=== PATIENT | female | born 1985 | race Caucasian/White ===

== ENCOUNTER 2017-06-04 10:00 | Observation (INO) | payer OTHER ==
[2017-06-04] MEDS ORDERED: Acetaminophen 325 MG Tab PO PRN (14:40)
--- NOTE | 2017-06-04 14:57 | PCM.LDHP ---
L&D History of Present Illness - General Date of Service: 06/04/17 Admit Problem/Dx: Admission Diagnosis/Problem Admission Diagnosis/Problem 06/04/17 14:51 32 yo G1 at 34 weeks 3 days gestation with dates based on LMP presented to the clinic with RLQ pain and possible increased vaginal discharge of clear fluid. she is currently on Keflex for UTI, course to be completed on Wednesday AM. Clinical exam included Sterile speculum exam: blood at cervix, no blood from the os. Cervical exam: 2.5cm/ 50%effaced/ NST: no contractions, reassuring FHR Amnisure: positive with blood stainging which can produce false positive results. Ferning: negative. Source of Information: Patient - Related Data Allergies/Adverse Reactions: Allergies Allergy/AdvReac Type Severity Reaction Status Date / Time No Known Allergies Allergy Verified 06/04/17 14:47 Home Medications: Home Meds Sertraline [Zoloft] 100 mg PO DAILY 04/11/16 [History] medroxyPROGESTERone [Provera] 10 mg PO DAILY #10 tab 04/11/16 [Rx] Past Medical History Gastrointestinal History: Reports: Irritable Bowel Syndrome - Past Surgical History GI Surgical History: Reports: Colonoscopy, Polypectomy Social & Family History - Tobacco Use Smoking Status *Q: Never Smoker - Recreational Drug Use Recreational Drug Use: No - Living Situation & Occupation Living situation: Reports: Occupation: Employed H&P Review of Systems - Review of Systems: Review Of Systems: See Below General: Reports: No Symptoms Pulmonary: Reports: No Symptoms Cardiovascular: Reports: No Symptoms Gastrointestinal: Reports: No Symptoms Genitourinary: Reports: No Symptoms L&D Exam - Exam Exam: See Below - Vital Signs Weight: 71.033 kg - Avila Score Avila Score Cervix Position: Midposition Avila Score Consistency: Soft Avila Score Effacement: 31-50% Avila Score Dilation: 1-2 cm - Exam GI/Abdominal Exam: Soft, No Distention, Other (tender to palpation in RLQ, no guarding or rebound. negative psoas sign) - Patient Data Lab Results Last 24 hrs: Laboratory Results - last 24 hr 06/04/17 Range/Units 10:00 Membrane Rupture Positive H - Problem List (1) Vaginal discharge during in third trimester SNOMED Code(s): 700243737 ICD Code: O26.893 - OTH RELATED CONDITIONS, THIRD TRIMESTER; N89.8 - OTHER SPECIFIED NONINFLAMMATORY DISORDERS OF VAGINA Status: Acute Current Visit: Yes Problem List Initiated/Reviewed/Updated: Yes Orders Last 24hrs: Active Orders 24 hr Category Date Time Status Non Stress Test [RC] PER UNIT ROUTINE Care 06/04/17 14:40 Ordered Up ad Edie [RC] ASDIRECTED Care 06/04/17 14:40 Ordered Vital Signs [RC] PER UNIT ROUTINE Care 06/04/17 14:40 Ordered Regular Diet [DIET] Diet 06/04/17 Dinner Ordered OB Ltd 1 or More Fetus [US] Routine Exams 06/04/17 14:48 Ordered Acetaminophen [Tylenol] Med 06/04/17 14:40 Ordered 650 mg PO Q4H PRN Medication Orders Acetaminophen (Tylenol) 650 mg PO Q4H PRN PRN Reason: Pain (mild 1-3) Assessment/Plan Comment:: Concern for PPROM in 34 week 3 day primip. plan to observe for 24 hours, obtain ARCHANA, repeat amnisure tomorrow. NST every 4 hours. Notify MD if contractions. Pt understand she will need to be transferred to [place] if active labor commences or AROM is present.
[2017-06-04 15:05] VITALS: BP 115/81
--- NOTE | 2017-06-04 16:00 | US ---
Limited obstetrical ultrasound: Multiple real-time images were obtained transabdominally. Comparison: No previous study. Dates: LMP: LMP given as 10/06/16, MARLINE 07/13/17, gestational age 34 weeks 3 days Current ultrasound: MARLINE 07/02/17, gestational age 36 weeks 0 days presentation: Cephalic Placenta: Anterior with no findings of placenta previa Amniotic fluid: ARCHANA 21.16 cm Measurements: BPD: 8.94 cm - 36 weeks 2 days Head circumference: 32.09 cm - 36 weeks 2 days Abdominal circumference: 32.10 cm - 36 weeks 1 day Femur length: 6.86 cm - 35 weeks 2 days Estimated weight: 2784 g (6 lbs. 2 oz.), estimated weight at the 47th percentile for current ultrasound Heart rate: 140 BPM Cervical length: Cervix not visualized due to position. Impression: 1. Single intrauterine fetus currently cephalic in presentation. Dates as noted above. 2. ARCHANA of 21.16 cm Diagnostic code #1
--- NOTE | 2017-06-05 12:06 | PCM.SN ---
- Free Text/Narrative Note: Antepartum Progress Note HD # 2 Subjective: Doing well overall. She reports that she has not had any additional leaking of fluid overnight. She reports that she is feeling some of the contractions but that they are not extremely painful. She reports she has been going to the bathroom without difficulty. Tolerating regular diet. Denies any fevers or chills. Denies any nausea or vomiting. Denies any significant abdominal pain or reports that she has had continued right lower quadrant pain that has been present for the last 5 days. Objective: Vitals: Last Vital Signs Temp 37.1 C 06/04/17 14:40 Pulse 83 06/04/17 14:40 Resp 16 06/04/17 14:40 BP 115/81 06/04/17 14:40 Pulse Ox 97 06/04/17 14:40 Physical Exam General: Alert and oriented, no acute distress Lungs: Clear to auscultation bilaterally Heart: Regular rate and rhythm Abdomen: Soft, gravid, nondistended, mild right lower quadrant tenderness, no fundal tenderness Pelvic: Friable-appearing cervix with no fluid in the vaginal vault, small amount of bleeding from the cervix with placement and opening of the speculum, unable to perform Amnisure secondary to significant amount of bleeding present, cervical exam 2.5/40%/-3/medium/posterior, able to feel amniotic sac that was felt to be intact with head behind amniotic sac Extremities: No edema Obstetrical ultrasound from 06/04/2017 at 1501 Single intrauterine fetus in cephalic presentation ARCHANA of 21.16 cm ASSESSMENT: 32-year-old female G 1 P 0 at 34 weeks 4 days who was admitted for continued observation in the setting of possible premature rupture of membranes based on positive Amnisure in the office with negative ferning PLAN: Doing well Discussed with patient that based on the exam with the speculum that there was no fluid within the vagina and she was not having any leaking overnight but she had bleeding with the speculum exam that I was not able to perform the Amnisure exam. This would have been more definitive testing for possible rupture of membranes. Discussed with patient that because I was able to feel the bag of water with a decent amount of fluid and a normal ARCHANA on the ultrasound that she is unlikely to have premature rupture of membranes. Cervical exam was unchanged from yesterday despite regular contractions overnight. Discussed with patient that this is likely not premature rupture membranes and that she is not in labor with unchanged cervical exam. Discussed with patient that she should have close follow-up with her regular OB provider, recommend for her follow-up on Wednesday, at 06/07/2017. Patient given strict return precautions including large gush of fluid, continued leaking of fluid, severe abdominal pain, regular contractions that are approximately every 10 minutes apart, severe nausea or vomiting, decreased movement, bleeding enough to soak a pad in less than an hour. Patient states understanding Casey Coombs MD 12:11 PM 06/05/2017
--- NOTE | 2017-06-05 12:16 | PCM.DCSUM1 ---
Discharge Summary - Hospital Course Free Text/Narrative:: 32 yo G1 at 34 weeks 3 days gestation with dates based on LMP presented to the clinic with RLQ pain and possible increased vaginal discharge of clear fluid. she is currently on Keflex for UTI, course to be completed on Wednesday. Clinical exam included Sterile speculum exam: blood at cervix, no blood from the os. Cervical exam: 2.5cm/ 50%effaced/ NST: no contractions, reassuring FHR Amnisure: positive with blood stainging which can produce false positive results. Ferning: negative. HPI Initial Comments: 32 yo G1 at 34 weeks 3 days gestation with dates based on LMP presented to the clinic with RLQ pain and possible increased vaginal discharge of clear fluid. she is currently on Keflex for UTI, course to be completed on Wednesday. Clinical exam included Sterile speculum exam: blood at cervix, no blood from the os. Cervical exam: 2.5cm/ 50%effaced/ NST: no contractions, reassuring FHR Amnisure: positive with blood stainging which can produce false positive results. Ferning: negative. Brief History: 32 yo G1 at 34 weeks 3 days gestation with dates based on LMP presented to the clinic with RLQ pain and possible increased vaginal discharge of clear fluid. she is currently on Keflex for UTI, course to be completed on Wednesday. Clinical exam included. Sterile speculum exam: blood at cervix, no blood from the os. Cervical exam: 2.5cm/ 50%effaced/. NST: no contractions, reassuring FHR. Amnisure: positive with blood stainging which can produce false positive results. Ferning: negative. - Discharge Data Discharge Date: 06/05/17 Discharge Disposition: Home, Self-Care 01 Condition: Good - Discharge Diagnosis/Problem(s) (1) 34 weeks gestation of SNOMED Code(s): 32111369 ICD Code: Z3A.34 - 34 WEEKS GESTATION OF Status: Acute Current Visit: Yes (2) UTI (urinary tract infection) in in third trimester SNOMED Code(s): 759629990 ICD Code: O23.43 - UNSP INFCT OF URINARY TRACT IN , THIRD TRIMESTER Status: Acute Current Visit: Yes (3) Vaginal discharge during in third trimester SNOMED Code(s): 030362041 ICD Code: O26.893 - OTH RELATED CONDITIONS, THIRD TRIMESTER; N89.8 - OTHER SPECIFIED NONINFLAMMATORY DISORDERS OF VAGINA Status: Acute Current Visit: Yes - Patient Summary/Data Operative Procedure(s) Performed: None Complications: None Consults: None Hospital Course: 32 yo G1 at 34 weeks 3 days gestation with dates based on LMP presented to the clinic with RLQ pain and possible increased vaginal discharge of clear fluid. she is currently on Keflex for UTI, course to be completed on Wednesday AM. Clinical exam included Sterile speculum exam: blood at cervix, no blood from the os. Cervical exam: 2.5cm/ 50%effaced/ NST: no contractions, reassuring FHR Amnisure: positive with blood stainging which can produce false positive results. Ferning: negative. Patient was monitored overnight after she was admitted for possible premature rupture membranes. There was concern for PPROM based on positive Amnisure but this was done with a significant amount of blood present that can sometimes cause a false positive. She had ferning test done that was negative. She had an ultrasound done on day of admission that showed an ARCHANA of 21.16 cm. Her monitoring was reactive throughout the night but she was having some uterine irritability with irregular contractions that were every 6-10 minutes apart. Patient reports that they were very mild in nature. In the morning of hospital day #2 and additional speculum pelvic exam was performed but due to the cervix that had significant amount of friability there was some bleeding when the speculum was opened and then Amnisure was not able to be performed. Prior to cervical bleeding there was noted to be no significant fluid within the vaginal vault. Patient reports that she was not having any continued leaking of fluid throughout the night. She reports that baby was moving well throughout the night. Cervical exam was 2.5/40/-3/medium/posterior which is felt to be unchanged from previous providers exam. Discussed with patient that with all of these tests that were done that was unlikely the patient had PPROM and offered discharge at this time. Patient desired to be discharged home. She was given strict return precautions for concern for rupture membranes, labor or chorioamnionitis. Patient states understanding. She will follow up with Dr. Madrigal on 06/07/2017. - Patient Instructions Diet: Regular Diet as Tolerated Activity: As Tolerated Activity, Other: Pelvic rest Driving: May Drive Today Showering/Bathing: May Shower Notify Provider of: Fever, Increased Pain, Drainage, Nausea and/or Vomiting - Discharge Plan Home Medications: Home Meds Sertraline [Zoloft] 100 mg PO DAILY 04/11/16 [History] Cephalexin [Keflex] 06/04/17 [History] Vits #93/Iron Fum/FA [ Formula Tablet] 06/04/17 [History] Patient Handouts: Labor Information, [id number], Pelvic Rest Referrals: Pooja Baca MD [Physician] - 06/07/17 (follow-up with Dr. Madrigal on 06/07/2017) - Discharge Summary/Plan Comment DC Time >30 min.: No - Patient Data Vitals - Most Recent: Last Vital Signs Temp 37.1 C 06/04/17 14:40 Pulse 83 06/04/17 14:40 Resp 16 06/04/17 14:40 BP 115/81 06/04/17 14:40 Pulse Ox 97 06/04/17 14:40 Weight - Most Recent: 71.033 kg I&O - Last 24 hours: Intake & Output 06/04/17 06/05/17 06/05/17 22:59 06:59 14:59 Intake Total 0 Balance 0 Med Orders - Current: Current Medications Acetaminophen (Tylenol) 650 mg PO Q4H PRN PRN Reason: Pain (mild 1-3) *Q Meaningful Use (DIS) - VTE *Q VTE Criteria *Q: - Stroke *Q Stroke Criteria *Q: - AMI *Q AMI Criteria *Q:
--- NOTE | 2017-06-05 14:57 | PCM.SN ---
- Free Text/Narrative Note: NST Procedure note Patient Name: Elizabeth Cooney Date Performed: 06/05/2017 Time Performed: [id number] Location performed: Evaluation room NST Indication: Elizabeth Cooney is a 32 year old at 34w4d who had an NST in the setting of possible PPROM. Vital Signs: Last Vital Signs Temp 37.1 C 06/04/17 14:40 Pulse 83 06/04/17 14:40 Resp 16 06/04/17 14:40 BP 115/81 06/04/17 14:40 Pulse Ox 97 06/04/17 14:40 Heart Tones: 130s, moderate variability, positive accelerations, occasional variable decelerations Tocometer: Irregular contractions every 6-10 minutes Assessment: Reactive NST Follow up: With your regular provider on 06/07/17 Casey Coombs MD
== END 2017-06-05 11:00 | disposition home or self-care (01) ==
LOC: JD.NPSAN 10:00 → JD.OB 14:36
PROVIDERS: ADMIT Family Medicine; ATTEND Family Medicine
DX: O26.893 Other specified pregnancy related conditions, third trimester (principal); N89.8 Other specified noninflammatory disorders of vagina; O23.43 Unspecified infection of urinary tract in pregnancy, third trimester; Z3A.34 34 weeks gestation of pregnancy; Z79.2 Long term (current) use of antibiotics; Z98.890 Other specified postprocedural states
CPT/HCPCS: 59025; 76815; 84112; G0378

== ENCOUNTER 2019-10-19 07:55 | Inpatient (IN) | payer OTHER ==
[~2019-10-19 07:55] MED LIST: Bupivacaine 0.25% 10 ML SDV ONE
[2019-10-19] MEDS ORDERED: Sodium Chloride 0.9% 10 ML Syringe FLUSH PRN (09:57)
[2019-10-19] MEDS ORDERED: Ondansetron 4 MG/2 ML SDV IVPUSH PRN (09:57)
[2019-10-19] MEDS ORDERED: Oxytocin/Lactated Ringers 10 UNIT/1,000 ML BAG IV SCH (10:00)
[2019-10-19] MEDS ORDERED: Ampicillin 2 GM in Sodium Chloride 0.9% 100 ML IV ONE (10:00)
[2019-10-19] MEDS: Lactated Ringers 1,000 ML IV SCH ×2 (10:10→16:37)
[2019-10-19] MEDS ORDERED: diphenhydrAMINE 50 MG/ML SDV IVPUSH PRN (10:42)
[2019-10-19] MEDS ORDERED: ePHEDrine 50 MG/ML SDV IVPUSH PRN (10:42)
[2019-10-19] MEDS ORDERED: fentaNYL 100 MCG/2 ML SDV EPIDUR PRN (10:42)
[2019-10-19] MEDS ORDERED: Bupivacaine/fentaNYL/NS 100 ML Bag EPIDUR PRN (10:42)
--- NOTE | 2019-10-19 13:07 | PCM.LDHP ---
<Marguerite Albright L - Last Filed: 10/19/19 12:59> L&D History of Present Illness - General Date of Service: 10/19/19 Admit Problem/Dx: Patient Status Order with Admit Dx/Problem 10/19/19 09:57 Patient Status [ADT] Routine Admission Diagnosis/Problem Admission Diagnosis/Problem 10/19/19 13:02 34-year-old white female [id number] presented to clinic this morning for a routine OB visit and noted some clear thin vaginal fluid, as well as contractions every 5-7 minutes for an hour or two at a time. Amnisure was positive. Patient was instructed to head to labor and delivery due to symptoms, lab analysis, and GBS positive status to ensure that antibiotic administration would be adequate before delivery. Mother is currently comfortable and antibiotic is being administered. Source of Information: Patient History Limitations: Reports: No Limitations - History of Present Illness Introduction:: 34-year-old white female [id number] presented to clinic this morning for a routine OB visit and noted some clear thin vaginal fluid, as well as contractions every 5-7 minutes for an hour or two at a time. Amnisure was positive. Patient was instructed to head to labor and delivery due to symptoms, lab analysis, and GBS positive status to ensure that antibiotic administration would be adequate before delivery. Mother is currently comfortable and antibiotic is being administered. Plan to rupture membranes after antibiotic delivery complete. Patient has on compression stockings as she is still able to ambulate to prevent DVTs. Will switch to SCDs when epidural is administered. She is not feeling any significant contractions but does note a pressure, abdominal tightening, and some low back pain. monitoring shows appropriate heart rate. Patient's blood pressure slightly elevated in L&D but not elevated during clinic visits. : Q8N1-5-2-3 with unremarkable course of . MARLINE 11/01/2019 by ultrasound dating, LMP estimated at 01/20/2020. Medications taken during include vitamins and Sertraline HCL 100 mg PO once daily. Symptoms during include: fatigue, nausea, dizziness (dehydration), and vaginal discharge. Early GTT performed due to history of gestational diabetes in prior . Started on progesterone injections at 20 weeks until 35 weeks due to history of prior labor. Influenza vaccination administered 05/31/19, Tdap administered 09/07/2019. Rubella immune. Planning to breastfeed. OB history: A4D6-9-9-2 with at 35 weeks gestation- female weighing 5 lb 5oz (Erna). Length of labor during first delivery was 2 hours. Gestational diabetes in first . Current is GBS positive. Laboratory: Blood type A+ with negative antibody screen. 04/12/19 hgb 14.4, hct 41.1%, platelets 207. Rubella immune and RPR/VDRL nonreactive. Negative for HIV , HBsAg, and STIs. UA contaminated. TSH 2.118 and Free T4 1.01 (04/12/19). Diabetic screen 128 (08/11/2019). GBS positive. Progesterone 26.12 (03/15/19). Declined genetic testing. Medications: Sertraline HCl 100 mg PO once daily, vitamins Allergies: No known drug allergies PMH: anxiety and depression, gestational diabetes in 1st , irritable bowel syndrome FH: Mother and PGF have hypertension. Father and sister have depression. PGF diabetes type II. SH: Rare alcohol use before . No tobacco use. Danial. 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 ROS: Positive for pelvic pressure/tightening and thin vaginal discharge. All other systems unremarkable. Physical: Cervical exam deferred until completion of antibiotics. Blood pressure mildly elevated. Quality: Reports: Pressure, Other (tightening ) Severity: Mild Associated Symptoms: Reports: vaginal fluid (thick mucus a week ago that transitioned to a thinner clear fluid), mild amount - Related Data Allergies/Adverse Reactions: Allergies Allergy/AdvReac Type Severity Reaction Status Date / Time No Known Allergies Allergy Verified 06/04/17 14:47 Home Medications: Home Meds Sertraline [Zoloft] 100 mg PO DAILY 04/11/16 [History] Vits #93/Iron Fum/FA [ Formula Tablet] 1 tab PO DAILY 06/04/17 [History] Past Medical History HEENT History: Reports: Other (See Below) Other HEENT History: glasses Gastrointestinal History: Reports: Irritable Bowel Syndrome 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: , Other (See Below) Other OB/BYN History: ovarian cyst Psychiatric History: Reports: Anxiety, Depression Endocrine/Metabolic History: Reports: Diabetes, Gestational - Past Surgical History HEENT Surgical History: Reports: Oral Surgery GI Surgical History: Reports: Colonoscopy, Polypectomy Social & Family History - Family History Family Medical History: Noncontributory Cardiac: Reports: Hypertension (Mother and PGF) Psychiatric: Reports: Depression (Father and sister) Endocrine/Metabolic: Reports: Diabetes, type II (PGF) - Tobacco Use Smoking Status *Q: Never Smoker Second Hand Smoke Exposure: No - Alcohol Use Alcohol Use History: Yes Date/Time of Last Drink Comment: Before Alcohol Use in Last Twelve Months: No Alcohol Use Frequency: Rarely - Recreational Drug Use Recreational Drug Use: No - Living Situation & Occupation Living situation: Reports: Occupation: Employed H&P Review of Systems - Review of Systems: Review Of Systems: See Below Free Text/Narrative: Comfortable with mild contractions General: Reports: No Symptoms HEENT: Reports: No Symptoms, Glasses Pulmonary: Reports: No Symptoms Cardiovascular: Reports: No Symptoms Gastrointestinal: Reports: No Symptoms Genitourinary: Reports: No Symptoms Musculoskeletal: Reports: No Symptoms Skin: Reports: No Symptoms Psychiatric: Reports: No Symptoms Neurological: Reports: No Symptoms Hematologic/Lymphatic: Reports: No Symptoms Immunologic: Reports: No Symptoms L&D Exam - Exam Exam: See Below - Vital Signs Vital Signs: Last Vital Signs Temp 97.5 F 10/19/19 09:57 Pulse 80 10/19/19 12:01 Resp 14 10/19/19 09:57 BP 140/86 10/19/19 12:01 Pulse Ox Weight: 75.296 kg - OB Specific Contraction Frequency (min): 5-7 Contraction Intensity: Mild Movement: Active Heart Tones: Present Presentation: Vertex - Avila Score Avila Score Cervix Position: Midposition (Obtained during visit today (10/19/2019)) Avila Score Consistency: Soft Avila Score Effacement: >80% Avila Score Dilation: 3-4 cm Avila Score 's Station: -3 Avila Score Total: 8 - Exam Quality Assessment: DVT Prophylaxis (currently compression stockings and ambulating but will place SCDs) General: Alert, Oriented HEENT: Conjunctiva Clear, EOMI, Hearing Intact, Mucosa Moist & Tappen, Pupils Equal Lungs: Normal Respiratory Effort Cardiovascular: Regular Rate, Regular Rhythm Genitourinary: Deferred (until after antibiotic administration, Avila score determined from today's visit just prior to L&D) Back Exam: Normal Inspection Extremities: Normal Inspection, Normal Range of Motion Skin: Warm, Dry, Intact Neurological: Normal Gait, Normal Speech, Sensation Intact Psychiatric: Alert, Normal Affect, Normal Mood - Patient Data Lab Results Last 24 hrs: Laboratory Results - last 24 hr 10/19/19 Range/Units 10:15 WBC 8.57 (3.98-10.04) K/mm3 RBC 4.10 (3.98-5.22) M/mm3 Hgb 13.1 (11.2-15.7) gm/dl Hct 39.5 (34.1-44.9) % MCV 96.3 H (79.4-94.8) fl MCH 32.0 (25.6-32.2) pg MCHC 33.2 (32.2-35.5) g/dl RDW Std Deviation 45.6 (36.4-46.3) fL Plt Count 167 L (182-369) K/mm3 MPV 12.3 (9.4-12.3) fl Neut % (Auto) 70.0 (34.0-71.1) % Lymph % (Auto) 21.6 (19.3-51.7) % [place] % (Auto) 7.6 (4.7-12.5) % Eos % (Auto) 0.4 L (0.7-5.8) Baso % (Auto) 0.2 (0.1-1.2) % Neut # (Auto) 6.00 (1.56-6.13) K/mm3 Lymph # (Auto) 1.85 (1.18-3.74) K/mm3 [place] # (Auto) 0.65 H (0.24-0.36) K/mm3 Eos # (Auto) 0.03 L (0.04-0.36) K/mm3 Baso # (Auto) 0.02 (0.01-0.08) K/mm3 Result Diagrams: 10/19/19 10:15 - Problem List (1) 38 weeks gestation of SNOMED Code(s): 00263736 ICD Code: Z3A.38 - 38 WEEKS GESTATION OF Status: Acute Current Visit: Yes Problem Details: Group B Strep positive status Problem List Initiated/Reviewed/Updated: Yes Orders Last 24hrs: Active Orders 24 hr Category Date Time Status Patient Status [ADT] Routine ADT 10/19/19 09:57 Active Activity as Tolerated [RC] PFP Care 10/19/19 09:57 Active Communication Order [RC] ASDIRECTED Care 10/19/19 09:57 Active Communication Order [RC] ASDIRECTED Care 10/19/19 10:42 Active Non Stress Test [RC] PER UNIT ROUTINE Care 10/19/19 09:57 Active Notify Provider [RC] ASDIRECTED Care 10/19/19 10:42 Active Notify Provider [RC] PFP Care 10/19/19 09:57 Active Notify Provider [RC] PRN Care 10/19/19 09:57 Active Peripheral IV Care [RC] . DIRECTED Care 10/19/19 09:58 Active Pulse Oximetry [RC] ASDIRECTED Care 10/19/19 10:42 Active Pump Management, Intrathecal [RC] ASDIRECTED Care 10/19/19 10:00 Active Urinary Catheter Assessment [RC] ASDIRECTED Care 10/19/19 09:57 Active Vital Signs [RC] PER UNIT ROUTINE Care 10/19/19 09:57 Active Vital Signs [RC] Q1H Care 10/19/19 10:42 Active Regular Diet [DIET] Diet 10/19/19 Breakfast Active RAPID PLASMA REAGIN,RPR [CHEM] Routine Lab 10/19/19 10:15 Received Ampicillin 1 gm Med 10/19/19 14:00 Active Sodium Chloride 0.9% [Normal Saline] 100 ml IV Q4H Bupivacaine/fentaNYL/NS [fentaNYL/Bupivacaine/NS 2 MCG- Med 10/19/19 10:42 Active 0.125% 100 ML] 100 ml EPIDUR CONTINUOUS PRN Lactated Ringers [Ringers, Lactated] 1,000 ml Med 10/19/19 10:00 Active IV ASDIRECTED Ondansetron [Zofran] Med 10/19/19 09:57 Active 4 mg IVPUSH Q4H PRN Oxytocin/Lactated Ringers [Pitocin in LR 10 Units/1,000 Med 10/19/19 10:00 Active ML] 10 unit in 1,000 ml IV .CONTINUOUS Sodium Chloride 0.9% [Saline Flush] Med 10/19/19 09:57 Active 10 ml FLUSH ASDIRECTED PRN diphenhydrAMINE [Benadryl] Med 10/19/19 10:42 Active 25 mg IVPUSH Q6H PRN ePHEDrine [ePHEDrine sulfate] Med 10/19/19 10:42 Active 5 mg IVPUSH ASDIRECTED PRN fentaNYL [Sublimaze] Med 10/19/19 10:42 Active 100 mcg EPIDUR Q3H PRN Electronic Heart Tones Ext w TOCO [WOMSER] Oth 10/19/19 09:57 Ordered Routine Electronic Heart Tones Internal [WOMSER] Per Unit Oth 10/19/19 09:57 Ordered Routine Peripheral IV Insertion Adult [OM.PC] Routine Oth 10/19/19 09:57 Ordered Resuscitation Status Routine Resus Stat 10/19/19 09:57 Ordered Medication Orders Diphenhydramine HCl (Benadryl) 25 mg IVPUSH Q6H PRN PRN Reason: Itching Ephedrine Sulfate (Ephedrine Sulfate) 5 mg IVPUSH ASDIRECTED PRN PRN Reason: HYPOTENTSION Fentanyl (Sublimaze) 100 mcg EPIDUR Q3H PRN PRN Reason: Pain Fentanyl/Bupivacaine HCl (Fentanyl/Bupivacaine/Ns 2 Mcg-0.125% 100 Ml) 100 ml EPIDUR CONTINUOUS PRN PRN Reason: Pain Ampicillin Sodium 1 gm/ Sodium (Chloride) 100 mls @ 200 mls/hr IV Q4H HEAVEN Lactated Ringer's (Ringers, Lactated) 1,000 mls @ 100 mls/hr IV ASDIRECTED [facility] Last Admin: 10/19/19 10:10 Dose: 100 mls/hr Oxytocin/Lactated Ringer's (Pitocin In Lr 10 Units/1,000 Ml) 10 unit in 1,000 mls @ 100 mls/hr IV .CONTINUOUS [facility] Ondansetron HCl (Zofran) 4 mg IVPUSH Q4H PRN PRN Reason: Nausea/Vomiting Sodium Chloride (Saline Flush) 10 ml FLUSH ASDIRECTED PRN PRN Reason: Keep Vein Open <Jeremias Carnes - Last Filed: 10/19/19 19:29> L&D History of Present Illness - General Admit Problem/Dx: Patient Status Order with Admit Dx/Problem 10/19/19 09:57 Patient Status [ADT] Routine Admission Diagnosis/Problem Admission Diagnosis/Problem L&D Exam - Vital Signs Vital Signs: Last Vital Signs Temp 36.4 C 10/19/19 09:57 Pulse 80 10/19/19 12:01 Resp 14 10/19/19 09:57 BP 140/86 10/19/19 12:01 Pulse Ox - Patient Data Lab Results Last 24 hrs: Laboratory Results - last 24 hr 10/19/19 Range/Units 10:15 WBC 8.57 (3.98-10.04) K/mm3 RBC 4.10 (3.98-5.22) M/mm3 Hgb 13.1 (11.2-15.7) gm/dl Hct 39.5 (34.1-44.9) % MCV 96.3 H (79.4-94.8) fl MCH 32.0 (25.6-32.2) pg MCHC 33.2 (32.2-35.5) g/dl RDW Std Deviation 45.6 (36.4-46.3) fL Plt Count 167 L (182-369) K/mm3 MPV 12.3 (9.4-12.3) fl Neut % (Auto) 70.0 (34.0-71.1) % Lymph % (Auto) 21.6 (19.3-51.7) % [place] % (Auto) 7.6 (4.7-12.5) % Eos % (Auto) 0.4 L (0.7-5.8) Baso % (Auto) 0.2 (0.1-1.2) % Neut # (Auto) 6.00 (1.56-6.13) K/mm3 Lymph # (Auto) 1.85 (1.18-3.74) K/mm3 [place] # (Auto) 0.65 H (0.24-0.36) K/mm3 Eos # (Auto) 0.03 L (0.04-0.36) K/mm3 Baso # (Auto) 0.02 (0.01-0.08) K/mm3 Result Diagrams: 10/19/19 10:15 Problem List Initiated/Reviewed/Updated: Yes Orders Last 24hrs: Active Orders 24 hr Category Date Time Status Patient Status Manage Transfer [TRANSFER] Routine ADT 10/19/19 19:14 Active Patient Status [ADT] Routine ADT 10/19/19 09:57 Active Activity as Tolerated [RC] PFP Care 10/19/19 09:57 Active Communication Order [RC] ASDIRECTED Care 10/19/19 09:57 Active Communication Order [RC] ASDIRECTED Care 10/19/19 10:42 Active Notify Provider [RC] ASDIRECTED Care 10/19/19 10:42 Active Notify Provider [RC] PFP Care 10/19/19 09:57 Active Notify Provider [RC] PRN Care 10/19/19 09:57 Active Peripheral IV Care [RC] . DIRECTED Care 10/19/19 09:58 Active Pump Management, Intrathecal [RC] ASDIRECTED Care 10/19/19 10:00 Active Urinary Catheter Assessment [RC] ASDIRECTED Care 10/19/19 09:57 Active Vital Signs [RC] PER UNIT ROUTINE Care 10/19/19 09:57 Active Regular Diet [DIET] Diet 10/19/19 Breakfast Active RAPID PLASMA REAGIN,RPR [CHEM] Routine Lab 10/19/19 10:15 Received Ampicillin 1 gm Med 10/19/19 14:00 Active Sodium Chloride 0.9% [Normal Saline] 100 ml IV Q4H Bupivacaine/fentaNYL/NS [fentaNYL/Bupivacaine/NS 2 MCG- Med 10/19/19 10:42 Active 0.125% 100 ML] 100 ml EPIDUR CONTINUOUS PRN Lactated Ringers [Ringers, Lactated] 1,000 ml Med 10/19/19 10:00 Active IV ASDIRECTED Ondansetron [Zofran] Med 10/19/19 09:57 Active 4 mg IVPUSH Q4H PRN Oxytocin/Lactated Ringers [Pitocin in LR 10 Units/1,000 Med 10/19/19 10:00 Active ML] 10 unit in 1,000 ml IV .CONTINUOUS Sertraline [Zoloft] Med 10/20/19 09:00 Active 100 mg PO DAILY Sodium Chloride 0.9% [Saline Flush] Med 10/19/19 09:57 Active 10 ml FLUSH ASDIRECTED PRN diphenhydrAMINE [Benadryl] Med 10/19/19 10:42 Active 25 mg IVPUSH Q6H PRN ePHEDrine [ePHEDrine sulfate] Med 10/19/19 10:42 Active 5 mg IVPUSH ASDIRECTED PRN fentaNYL [Sublimaze] Med 10/19/19 10:42 Active 100 mcg EPIDUR Q3H PRN Electronic Heart Tones Ext w TOCO [WOMSER] Oth 10/19/19 09:57 Ordered Routine Electronic Heart Tones Internal [WOMSER] Per Unit Oth 10/19/19 09:57 Ordered Routine Peripheral IV Insertion Adult [OM.PC] Routine Oth 10/19/19 09:57 Ordered Resuscitation Status Routine Resus Stat 10/19/19 09:57 Ordered Medication Orders Diphenhydramine HCl (Benadryl) 25 mg IVPUSH Q6H PRN PRN Reason: Itching Ephedrine Sulfate (Ephedrine Sulfate) 5 mg IVPUSH ASDIRECTED PRN PRN Reason: HYPOTENTSION Fentanyl (Sublimaze) 100 mcg EPIDUR Q3H PRN PRN Reason: Pain Last Admin: 10/19/19 16:29 Dose: 100 mcg Fentanyl/Bupivacaine HCl (Fentanyl/Bupivacaine/Ns 2 Mcg-0.125% 100 Ml) 100 ml EPIDUR CONTINUOUS PRN PRN Reason: Pain Last Admin: 10/19/19 16:30 Dose: 100 ml Ampicillin Sodium 1 gm/ Sodium (Chloride) 100 mls @ 200 mls/hr IV Q4H HEAVEN Last Admin: 10/19/19 17:58 Dose: 200 mls/hr Infusion: 10/19/19 14:32 Dose: 200 mls/hr Admin: 10/19/19 14:02 Dose: 200 mls/hr Lactated Ringer's (Ringers, Lactated) 1,000 mls @ 100 mls/hr IV ASDIRECTED [facility]EN Last Admin: 10/19/19 16:37 Dose: 100 mls/hr Infusion: 10/19/19 16:37 Dose: 100 mls/hr Admin: 10/19/19 10:10 Dose: 100 mls/hr Oxytocin/Lactated Ringer's (Pitocin In Lr 10 Units/1,000 Ml) 10 unit in 1,000 mls @ 100 mls/hr IV .CONTINUOUS [facility] Ondansetron HCl (Zofran) 4 mg IVPUSH Q4H PRN PRN Reason: Nausea/Vomiting Sertraline HCl (Zoloft) 100 mg PO DAILY [facility] Sodium Chloride (Saline Flush) 10 ml FLUSH ASDIRECTED PRN PRN Reason: Keep Vein Open Assessment/Plan Comment:: 1. 38-1/7 week intrauterine , spontaneous rupture membranes, early labor, advanced cervical dilation of 4 cm upon evaluation prior to admission. 2. Group B strep screen positivecandidate for antibiotic prophylaxis 3. Patient plans to breast-feed 4. Patient desires epidural in labor and delivery 5. Patient is rubella immune. Patient received both T dap and flu vaccinations. 6. Previous history of labor. 7. On sertraline presently been course. Plan: 1. We'll proceed with prophylaxis with ampicillin 2 g initially followed by 1 g IV every 4 hours per protocol for group B strep positive status. 2. Anticipate normal spontaneous vaginal delivery 3. Epidural when necessary per patient desire 4. CBC for platelet count and RPR upon admission per protocol. 5. Routine labor care 6. Continue sertraline after delivery
[2019-10-19] MEDS: Ampicillin 1 GM in Sodium Chloride 0.9% 100 ML IV SCH ×2 (14:02→17:58)
--- NOTE | 2019-10-19 16:52 | PCM.PREANE ---
Preanesthetic Assessment - Procedure Proposed Procedure: epidural - Anesthesia/Transfusion/Family Hx Anesthesia History: Prior Anesthesia Without Reaction Family History of Anesthesia Reaction: No Transfusion History: No Prior Transfusion(s) - Review of Systems General: Fatigue Pulmonary: No Symptoms Cardiovascular: No Symptoms Gastrointestinal: Abdominal Pain (labor) Neurological: No Symptoms Other: Reports: None - Physical Assessment Vital Signs: Last Vital Signs Temp 36.4 C 10/19/19 09:57 Pulse 80 10/19/19 12:01 Resp 14 10/19/19 09:57 BP 140/86 10/19/19 12:01 Pulse Ox Height: 1.68 m Weight: 75.296 kg ASA Class: 2 Mental Status: Alert & Oriented x3 Airway Class: Mallampati = 1 Dentition: Reports: Normal Dentition Thyro-Mental Finger Breadths: 3 Mouth Opening Finger Breadths: 3 ROM/Head Extension: Full Lungs: Clear to Auscultation, Normal Respiratory Effort Cardiovascular: Regular Rate, Regular Rhythm - Lab Values: Laboratory Last Values WBC 8.57 K/mm3 (3.98-10.04) 10/19/19 10:15 RBC 4.10 M/mm3 (3.98-5.22) 10/19/19 10:15 Hgb 13.1 gm/dl (11.2-15.7) 10/19/19 10:15 Hct 39.5 % (34.1-44.9) 10/19/19 10:15 MCV 96.3 fl (79.4-94.8) H 10/19/19 10:15 MCH 32.0 pg (25.6-32.2) 10/19/19 10:15 MCHC 33.2 g/dl (32.2-35.5) 10/19/19 10:15 RDW Std Deviation 45.6 fL (36.4-46.3) 10/19/19 10:15 Plt Count 167 K/mm3 (182-369) L 10/19/19 10:15 MPV 12.3 fl (9.4-12.3) 10/19/19 10:15 Neut % (Auto) 70.0 % (34.0-71.1) 10/19/19 10:15 Lymph % (Auto) 21.6 % (19.3-51.7) 10/19/19 10:15 [place] % (Auto) 7.6 % (4.7-12.5) 10/19/19 10:15 Eos % (Auto) 0.4 (0.7-5.8) L 10/19/19 10:15 Baso % (Auto) 0.2 % (0.1-1.2) 10/19/19 10:15 Neut # (Auto) 6.00 K/mm3 (1.56-6.13) 10/19/19 10:15 Lymph # (Auto) 1.85 K/mm3 (1.18-3.74) 10/19/19 10:15 [place] # (Auto) 0.65 K/mm3 (0.24-0.36) H 10/19/19 10:15 Eos # (Auto) 0.03 K/mm3 (0.04-0.36) L 10/19/19 10:15 Baso # (Auto) 0.02 K/mm3 (0.01-0.08) 10/19/19 10:15 - Allergies Allergies/Adverse Reactions: Allergies Allergy/AdvReac Type Severity Reaction Status Date / Time No Known Allergies Allergy Verified 06/04/17 14:47 - Anesthesia Plan Pre-Op Medication Ordered: None - Acknowledgements Anesthesia Type Planned: Epidural Pt an Appropriate Candidate for the Planned Anesthesia: Yes Alternatives and Risks of Anesthesia Discussed w Pt/Guardian: Yes Pt/Guardian Understands and Agrees with Anesthesia Plan: Yes PreAnesthesia Questionnaire HEENT History: Reports: Other (See Below) Other HEENT History: glasses Gastrointestinal History: Reports: GERD, 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 Bowel 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: , 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 (See Below) Other OB/BYN History: ovarian cyst Psychiatric History: Reports: Anxiety, Depression Endocrine/Metabolic History: Reports: Diabetes, Gestational - Past Surgical History HEENT Surgical History: Reports: Oral Surgery GI Surgical History: Reports: Colonoscopy, Polypectomy - SUBSTANCE USE Smoking Status *Q: Never Smoker Second Hand Smoke Exposure: No Recreational Drug Use History: No - HOME MEDS Home Medications: Home Meds Sertraline [Zoloft] 100 mg PO DAILY 04/11/16 [History] Vits #93/Iron Fum/FA [ Formula Tablet] 1 tab PO DAILY 06/04/17 [History] - CURRENT (IN HOUSE) MEDS Current Meds: Current Medications Diphenhydramine HCl (Benadryl) 25 mg IVPUSH Q6H PRN PRN Reason: Itching Ephedrine Sulfate (Ephedrine Sulfate) 5 mg IVPUSH ASDIRECTED PRN PRN Reason: HYPOTENTSION Fentanyl (Sublimaze) 100 mcg EPIDUR Q3H PRN PRN Reason: Pain Last Admin: 10/19/19 16:29 Dose: 100 mcg Fentanyl/Bupivacaine HCl (Fentanyl/Bupivacaine/Ns 2 Mcg-0.125% 100 Ml) 100 ml EPIDUR CONTINUOUS PRN PRN Reason: Pain Last Admin: 10/19/19 16:30 Dose: 100 ml Ampicillin Sodium 1 gm/ Sodium (Chloride) 100 mls @ 200 mls/hr IV Q4H HEAVEN Last Admin: 10/19/19 14:02 Dose: 200 mls/hr Lactated Ringer's (Ringers, Lactated) 1,000 mls @ 100 mls/hr IV ASDIRECTED [facility] Last Admin: 10/19/19 16:37 Dose: 100 mls/hr Oxytocin/Lactated Ringer's (Pitocin In Lr 10 Units/1,000 Ml) 10 unit in 1,000 mls @ 100 mls/hr IV .CONTINUOUS [facility] Ondansetron HCl (Zofran) 4 mg IVPUSH Q4H PRN PRN Reason: Nausea/Vomiting Sodium Chloride (Saline Flush) 10 ml FLUSH ASDIRECTED PRN PRN Reason: Keep Vein Open Discontinued Medications Ampicillin Sodium 2 gm/ Sodium (Chloride) 100 mls @ 200 mls/hr IV ONETIME ONE Stop: 10/19/19 10:29 Last Admin: 10/19/19 10:10 Dose: 200 mls/hr
--- NOTE | 2019-10-19 19:23 | PCM.SN ---
- Free Text/Narrative Note: Delivery note: 34-year-old white female [id number] presented to clinic this morning for a routine OB visit and noted some clear thin vaginal fluid, as well as contractions every 5-7 minutes for an hour or two at a time. Amnisure was positive.She progressed steadily to complete cervical dilation by approximately 1840 hrs. She pushed for approximately 3 contractions and delivered a viable, carroll, male at 1857 hrs. on 10/19/2019 in a direct occiput anterior position. Perineum remained intact and no suturing was required. The baby weighed 2910 g (6 pounds 6.6 ounces), had Apgars of 7 and 9 and a length of 21.0 inches. There was a nuchal cord 1 which was loose and reduced over the baby's head. The baby was placed on mom's abdomen, nose and mouth were bulb suctioned and cord was allowed to pulsate for approximately 1-2 minutes was then clamped and cut. Pitocin was started and increased 500 mL per hour to facilitate increase in uterine tone and decrease likelihood of bleeding. The cord blood was obtained. Umbilical cord had 3 vessels present. The placenta delivered at 1901 hrs. in a Milner presentation, appeared intact and complete and was discarded per patient desire. Patient plans to breast-feed. Estimated blood loss 100 mL. Condition: Good
[2019-10-19] MEDS ORDERED: Docusate Sodium 100 MG Cap PO PRN (20:33)
[2019-10-19] MEDS ORDERED: Benzocaine/Menthol 20%-0.5% Spray 56 GM Canister TOP PRN (20:33)
[2019-10-19] MEDS ORDERED: Witch Hazel Medicated Pads 40/Jar TOP PRN (20:33)
[2019-10-19] MEDS ORDERED: Acetaminophen 325 MG Tab PO PRN (20:33)
[2019-10-19] MEDS ORDERED: Ibuprofen 600 MG Tab PO PRN (20:33)
--- NOTE | 2019-10-20 08:53 | PCM48HPAN ---
Post Anesthesia Note - EVALUATION WITHIN 48HRS OF ANESTHETIC Vital Signs in Normal Range: Yes Patient Participated in Evaluation: Yes Respiratory Function Stable: Yes Airway Patent: Yes Cardiovascular Function Stable: Yes Hydration Status Stable: Yes Pain Control Satisfactory: Yes Nausea and Vomiting Control Satisfactory: Yes Mental Status Recovered: Yes Vital Signs: Last Vital Signs Temp 98.4 F 10/20/19 05:23 Pulse 74 10/20/19 05:23 Resp 14 10/20/19 05:23 BP 104/87 10/20/19 05:23 Pulse Ox 97 10/20/19 05:23
[2019-10-20] MEDS ORDERED: Sertraline 50 MG Tab PO SCH (09:00)
[2019-10-20] MEDS ORDERED: Prenatal Multivitamin with Calcium/Folic Acid/Iron Tab PO SCH (09:00)
--- NOTE | 2019-10-21 09:21 | PCM.DCSUM1 ---
Discharge Summary - Hospital Course Free Text/Narrative:: [facility] Provider Simple Note Patient Name: SIMIN SELLERS Date of : 87 Patient Status: Inpatient Attending Provider: Jeremias Carnes Date: 10/19/19 19:19 Initialization Date: 10/19/19 19:19 - Free Text/Narrative Note: Delivery note: 34-year-old white female [id number] presented to clinic this morning for a routine OB visit and noted some clear thin vaginal fluid, as well as contractions every 5-7 minutes for an hour or two at a time. Amnisure was positive.She progressed steadily to complete cervical dilation by approximately 1840 hrs. She pushed for approximately 3 contractions and delivered a viable, carroll, male at 1857 hrs. on 10/19/2019 in a direct occiput anterior position. Perineum remained intact and no suturing was required. The baby weighed 2910 g (6 pounds 6.6 ounces), had Apgars of 7 and 9 and a length of 21.0 inches. There was a nuchal cord 1 which was loose and reduced over the baby's head. The baby was placed on mom's abdomen, nose and mouth were bulb suctioned and cord was allowed to pulsate for approximately 1-2 minutes was then clamped and cut. Pitocin was started and increased 500 mL per hour to facilitate increase in uterine tone and decrease likelihood of bleeding. The cord blood was obtained. Umbilical cord had 3 vessels present. The placenta delivered at 1901 hrs. in a Milner presentation, appeared intact and complete and was discarded per patient desire. Patient plans to breast-feed. Estimated blood loss 100 mL. Condition: Good HPI Initial Comments: [facility] Provider Simple Note Patient Name: SIMIN SELLERS Date of : 87 Patient Status: Inpatient Attending Provider: Jeremias Carnes Date: 10/19/19 19:19 Initialization Date: 10/19/19 19:19 - Free Text/Narrative Note: Delivery note: 34-year-old white female [id number] presented to clinic this morning for a routine OB visit and noted some clear thin vaginal fluid, as well as contractions every 5-7 minutes for an hour or two at a time. Amnisure was positive.She progressed steadily to complete cervical dilation by approximately 1840 hrs. She pushed for approximately 3 contractions and delivered a viable, carroll, male at 1857 hrs. on 10/19/2019 in a direct occiput anterior position. Perineum remained intact and no suturing was required. The baby weighed 2910 g (6 pounds 6.6 ounces), had Apgars of 7 and 9 and a length of 21.0 inches. There was a nuchal cord 1 which was loose and reduced over the baby's head. The baby was placed on mom's abdomen, nose and mouth were bulb suctioned and cord was allowed to pulsate for approximately 1-2 minutes was then clamped and cut. Pitocin was started and increased 500 mL per hour to facilitate increase in uterine tone and decrease likelihood of bleeding. The cord blood was obtained. Umbilical cord had 3 vessels present. The placenta delivered at 1901 hrs. in a Milner presentation, appeared intact and complete and was discarded per patient desire. Patient plans to breast-feed. Estimated blood loss 100 mL. Condition: Good Brief History: [facility] . Provider Simple Note. Patient Name : SIMIN SELLERS [facility] Record Number: [id number]. Date of : Patient Status: Inpatient. Attending Provider: Jeremias Carnes FAccount Number: [id number]. Date: 10/19/19 19:19Initialization Date: 10/19/19 19:19. - Free Text/Narrative. Note: Delivery note: 34-year-old white female -1 -0-2 presented to clinic this morning for a routine OB visit and noted some clear thin vaginal fluid, as well as contractions every 5-7 minutes for an hour or two at a time. Amnisure was positive.She progressed steadily to complete cervical dilation by approximately 1840 hrs. She pushed for approximately 3 contractions and delivered a viable, carroll, male infant at 1857 hrs. on 10/18 in a direct occiput anterior position. Perineum remained intact and no suturing was required. The baby weighed 2910 g (6 pounds 6.6 ounces), had Apgars of 7 and 9 and a length of 21.0 inches. There was a nuchal cord 1 which was loose and reduced over the baby's head. The baby was placed on mom's abdomen , nose and mouth were bulb suctioned and cord was allowed to pulsate for approximately 1-2 minutes was then clamped and cut. Pitocin was started and increased 500 mL per hour to facilitate increase in uterine tone and decrease likelihood of bleeding. The cord blood was obtained. Umbilical cord had 3 vessels present. The placenta delivered at 1901 hrs. in a Milner presentation, appeared intact and complete and was discarded per patient desire. Patient plans to breast-feed. Estimated blood loss 100 mL. Condition: Good. [facility] . [facility] Simple Note. [facility]: [id number]. Date of : 87Patient Status: Inpatient. Attending Provider: Jeremias Carnes FAccount Number: [id number]. Date: 10/19/19 19:19Initialization Date: 10/19/19 19:19. - Free Text/ Narrative. Note: Delivery note: 34-year-old white female [id number] presented to clinic this morning for a routine OB visit and noted some clear thin vaginal fluid, as well as contractions every 5-7 minutes for an hour or two at a time. Amnisure was positive.She progressed steadily to complete cervical dilation by approximately 1840 hrs. She pushed for approximately 3 contractions and delivered a viable, carroll, male infant at 1857 hrs. on 10/18 in a direct occiput anterior position. Perineum remained intact and no suturing was required. The baby weighed 2910 g (6 pounds 6.6 ounces), had Apgars of 7 and 9 and a length of 21.0 inches. There was a nuchal cord 1 which was loose and reduced over the baby's head. The baby was placed on mom's abdomen , nose and mouth were bulb suctioned and cord was allowed to pulsate for approximately 1-2 minutes was then clamped and cut. Pitocin was started and increased 500 mL per hour to facilitate increase in uterine tone and decrease likelihood of bleeding. The cord blood was obtained. Umbilical cord had 3 vessels present. The placenta delivered at 1901 hrs. in a Milner presentation, appeared intact and complete and was discarded per patient desire. Patient plans to breast-feed. Estimated blood loss 100 mL. Condition: Good Diagnosis: Stroke: No - Discharge Data Discharge Date: 10/21/19 Discharge Disposition: Home, Self-Care 01 Condition: Good - Referral to Home Health Primary Care Physician: Jeremias Carnes MD - Discharge Diagnosis/Problem(s) (1) 38 weeks gestation of SNOMED Code(s): 04296678 ICD Code: Z3A.38 - 38 WEEKS GESTATION OF Status: Acute Current Visit: Yes Problem Details: Group B Strep positive status (2) Vaginal delivery SNOMED Code(s): 570959093 ICD Code: O80 - ENCOUNTER FOR FULL-TERM UNCOMPLICATED DELIVERY Status: Acute Current Visit: Yes - Patient Summary/Data Complications: none Consults: none Hospital Course: uneventful - Patient Instructions Diet: Usual Diet as Tolerated Driving: Do Not Drive (x48 hrs) Showering/Bathing: May Shower Notify Provider of: Fever, Increased Pain, Swelling and Redness, Drainage, Nausea and/or Vomiting - Discharge Plan *PRESCRIPTION DRUG MONITORING PROGRAM REVIEWED*: Not Applicable *COPY OF PRESCRIPTION DRUG MONITORING REPORT IN PATIENT ANNITA: Not Applicable Home Medications: Home Meds Sertraline [Zoloft] 100 mg PO DAILY 04/11/16 [History] Vits #93/Iron Fum/FA [ Formula Tablet] 1 tab PO DAILY 06/04/17 [History] Acetaminophen [Tylenol] 650 mg PO Q6H PRN tablet 10/21/19 [Rx] Benzocaine/Menthol [Dermoplast Pain Relief Ray] 1 spray TOP ASDIRECTED PRN canister 10/21/19 [Rx] Docusate Sodium [Colace] 100 mg PO BID PRN cap 10/21/19 [Rx] Ibuprofen [Motrin] 600 mg PO Q6H PRN tablet 10/21/19 [Rx] witch Bhumi [Tucks] 1 pad TOP ASDIRECTED PRN pad 10/21/19 [Rx] Referrals: Jeremias Carnes MD [Primary Care Provider] - (Patient to call Wednesday to make appointment to see Dr. Carnes in 2 weeks.) - Discharge Summary/Plan Comment DC Time >30 min.: No - Patient Data Vitals - Most Recent: Last Vital Signs Temp 97.2 F 10/21/19 05:36 Pulse 83 10/21/19 05:36 Resp 16 10/21/19 05:36 BP 112/79 10/21/19 05:36 Pulse Ox 96 10/21/19 05:36 Weight - Most Recent: 166 lb I&O - Last 24 hours: Intake & Output 10/20/19 10/21/19 10/21/19 22:59 06:59 14:59 Intake Total 320 Balance 320 Med Orders - Current: Current Medications Acetaminophen (Tylenol) 650 mg PO Q4H PRN PRN Reason: mild pain or fever Benzocaine/Menthol (Dermoplast Pain Relief Ray) 0 gm TOP ASDIRECTED PRN PRN Reason: Perineal Comfort Measure Docusate Sodium (Colace) 100 mg PO BID PRN PRN Reason: Constipation Ibuprofen (Motrin) 600 mg PO Q4H PRN PRN Reason: Mild pain or fever Last Admin: 10/20/19 21:51 Dose: 600 mg Prenat Multivit/[place]/Iron/Folic Ac ( Plus Iron) 1 each PO DAILY [facility] Last Admin: 10/20/19 13:48 Dose: Not Given Sertraline HCl (Zoloft) 100 mg PO DAILY [facility] Last Admin: 10/20/19 13:48 Dose: Not Given Witch Bhumi (Tucks) 1 pad TOP ASDIRECTED PRN PRN Reason: Perineal Comfort Measure Discontinued Medications Bupivacaine HCl (Sensorcaine-Mpf 0.25%) 10 ml .ROUTE .STK-MED ONE Stop: 10/19/19 00:01 Diphenhydramine HCl (Benadryl) 25 mg IVPUSH Q6H PRN PRN Reason: Itching Ephedrine Sulfate (Ephedrine Sulfate) 5 mg IVPUSH ASDIRECTED PRN PRN Reason: HYPOTENTSION Fentanyl (Sublimaze) 100 mcg EPIDUR Q3H PRN PRN Reason: Pain Last Admin: 10/19/19 16:29 Dose: 100 mcg Fentanyl/Bupivacaine HCl (Fentanyl/Bupivacaine/Ns 2 Mcg-0.125% 100 Ml) 100 ml EPIDUR CONTINUOUS PRN PRN Reason: Pain Last Admin: 10/19/19 16:30 Dose: 100 ml Ampicillin Sodium 2 gm/ Sodium (Chloride) 100 mls @ 200 mls/hr IV ONETIME ONE Stop: 10/19/19 10:29 Last Admin: 10/19/19 10:10 Dose: 200 mls/hr Ampicillin Sodium 1 gm/ Sodium (Chloride) 100 mls @ 200 mls/hr IV Q4H [facility] Last Admin: 10/19/19 17:58 Dose: 200 mls/hr Lactated Ringer's (Ringers, Lactated) 1,000 mls @ 100 mls/hr IV ASDIRECTED [facility] Last Admin: 10/19/19 16:37 Dose: 100 mls/hr Oxytocin/Lactated Ringer's (Pitocin In Lr 10 Units/1,000 Ml) 10 unit in 1,000 mls @ 100 mls/hr IV .CONTINUOUS [facility] Last Admin: 10/19/19 19:00 Dose: 100 mls/hr Ondansetron HCl (Zofran) 4 mg IVPUSH Q4H PRN PRN Reason: Nausea/Vomiting Sodium Chloride (Saline Flush) 10 ml FLUSH ASDIRECTED PRN PRN Reason: Keep Vein Open
[2019-10-21 17:52] VITALS: BP 118/72; PULSE 84
== END 2019-10-21 09:30 | disposition home or self-care (01) | DRG 807 ==
LOC: JD.WOMH 07:55 → JD.OB 09:34 → OBSVTOIN 18:57 → JD.OB 18:57
PROVIDERS: ADMIT Obstetrics & Gynecology; ATTEND Obstetrics & Gynecology
PROC: 10E0XZZ Delivery of Products of Conception, External Approach (ICD-10-PCS; principal; 2019-10-19)
PROC: 10907ZC Drainage of Amniotic Fluid, Therapeutic from Products of Conception, Via Natural or Artificial Opening (ICD-10-PCS; 2019-10-19)
PROC: 3E0R3BZ Introduction of Anesthetic Agent into Spinal Canal, Percutaneous Approach (ICD-10-PCS; 2019-10-19)
DX: O99.824 Streptococcus B carrier state complicating childbirth (principal); Z37.0 Single live birth; O99.344 Other mental disorders complicating childbirth; O69.81X0 Labor and delivery complicated by cord around neck, without compression, not applicable or unspecified; F41.9 Anxiety disorder, unspecified; F32.9 Major depressive disorder, single episode, unspecified; Z79.899 Other long term (current) drug therapy; Z3A.38 38 weeks gestation of pregnancy
CPT/HCPCS: 36415; 59025; 59409; 85025; 86592; A9270-GY; J0290; J2590; J3010; J3490; J7050; J7120